=== PATIENT | female | born 1980 | race Caucasian/White ===

== ENCOUNTER 2019-09-30 15:36 | Emergency (ER) | payer OTHER, SELFPAY ==
--- NOTE | ~2019-09-30 | CT_ITS ---
EXAMINATION: CT abdomen pelvis wo con EXAM DATE: 09/30/2019 17:05 INDICATION: Left flank, left lower quadrant pain. TECHNIQUE: Spiral CT of the abdomen and pelvis was performed without contrast. Axial, coronal and sag ittal images were reviewed. The dose-length product (DLP) for this examination was 506.54 mGy-cm. T he exposure was tailored according to patient size (auto mA exposure control), and iterative reconstr uction (ASIR) was used as additional dose reduction technique. Comparison is made to prior examinatio n from 03/22/2019. FINDINGS: Bilateral nonobstructing calyceal stones, with a 3 mm stone in the superior pole of the lef t kidney and 2 right kidney stones, largest measuring 3.5 mm in the superior pole. No hydronephrosis. Lobular renal contours bilaterally. The uterus is retroverted and morphologically normal. Right ova ry has a dominant follicle. The bladder is unremarkable. The liver, spleen, adrenal glands and panc reas are unremarkable. There are cholecystectomy clips. There is no retroperitoneal or pelvic lymph adenopathy. The appendix is normal. Small duodenal diverticula. There is expected amount of colonic stool. Ther e is a few scattered colonic diverticula. There is no adjacent inflammatory change to suggest divert iculitis. No free intraperitoneal gas. The heart is normal in size. There are no pericardial or p leural effusions. The lung bases are unremarkable. The bones are unremarkable. IMPRESSION: 1. Small bilateral nephrolithiasis. No obstructive nephropathy or acute findings. 2. Scattered colonic, duodenal diverticula. Reviewed, dictated and finalized at location [facility]. IMPRESSION: 1. Small bilateral nephrolithiasis. No obstructive nephropathy or acute findin gs. 2. Scattered colonic, duodenal diverticula.
--- NOTE | ~2019-09-30 | XR_ITS ---
EXAMINATION: XR abdomen/kub 1V EXAM DATE: 09/30/2019 17:09 INDICATION: Left flank, left lower quadrant pain. TECHNIQUE: Frontal projection of the upper abdomen, frontal projection lower abdomen/pelvis for inter pretation. Comparison is made to prior examination from 03/22/2019. FINDINGS: Small bilateral nephrolithiasis is identified. Expected amount of colonic stool. Nonobstru ctive bowel gas pattern. There are cholecystectomy clips. There is no organomegaly. Small sacral bone island. IMPRESSION: Small bilateral nephrolithiasis. Reviewed, dictated and finalized at location [facility].
[2019-09-30 15:38] VITALS: BP 140/91; PULSE 85; RESP 18; TEMP 37.3; O2SAT 99
[2019-09-30 16:00] VITALS: BP 133/81; PULSE 84; RESP 18; O2SAT 96
[2019-09-30 16:07] LABS: Basophils Percent Auto 0.2 % (0.2-1.2); Eosinophils Absolute Auto 0.1 K/mm3 (0-0.3); Hematocrit 42.3 % (37.0-47.0); Hemoglobin 13.6 g/dL (12.0-15.0); Immature Granulocyte Absolute 0.03 K/mm3 (0.00-0.031); Immature Granulocyte Percent A 0.3 % (0-0.5); Lymphocytes Absolute Auto 1.43 K/mm3 (0.9-3.2); Lymphocytes Percent Auto 16.6 % (18.3-44.2); Mean Corpuscular HGB Conc 32.2 g/dl (32-36); Mean Corpuscular Hemoglobin 29.3 pg (26-34); Mean Corpuscular Volume 91.2 fl (80-100); Mean Platelet Volume 11.1 fl (7.4-10.4); Monocytes Absolute Auto 0.6 K/mm3 (0.1-0.6); Monocytes Percent Auto 7.4 % (2.6-8.5); Neutrophils Absolute Auto 6.4 K/mm3 (1.3-6.7); Neutrophils Percent Auto 74.5 % (45.5-73.1); Platelet Count Result 268 k/mm3 (150-375); Red Blood Count 4.64 M/mm3 (4.2-5.4); Red Cell Distribution Width 13.6 % (11.5-14.5); White Blood Count 8.6 K/mm3 (4.5-10.0)
--- NOTE | 2019-09-30 16:08 | ED.ABDPAIN ---
HPI - Abdominal Pain General Chief Complaint: Abdominal Pain Stated Complaint: L FLANK PAIN Time Seen by Provider: 09/30/19 15:41 Source: patient and family Mode of arrival: ambulatory Limitations: no limitations History of Present Illness HPI narrative: Patient is a 39-year-old female who presents with left lower quadrant abdominal pain that began this morning as a sharp stabbing pain worse with activity and movement that does not radiate patient denies similar occurrence in the past has not taken anything for her symptoms. Patient on arrival is in the room in no distress. Patient denies vomiting nausea change in bowel habits or urinary symptoms or any radicular symptoms or paresthesias Related Data Allergies Allergy/AdvReac Type Severity Reaction Status Date / Time morphine Allergy Severe diffculty Verified 09/30/19 15:47 breathing ketorolac Allergy Mild HIVES Verified 09/30/19 15:47 metoclopramide Allergy Mild HIVES Verified 09/30/19 15:47 tramadol Allergy Mild HIVES Verified 09/30/19 15:47 Review of Systems Review of Systems: All systems reviewed & are unremarkable except as noted in HPI and below PMFSH Past Medical History Medical History (Updated 09/30/19 @ 17:30 by Mayito Schneider PA-C) Urolithiasis Social History Social History Smoking status: Never smoker Gender identity (if verbalized by the patient): Female Exam Narrative: Exam Narrative: GENERAL: Well-appearing, obese, and in no acute distress. HEAD: Normocephalic, atraumatic. EYES: PERRLA and EOMI. ENT: Nares clear, no rhinorrhea or epistaxis. Mucous membranes moist. Oropharynx without tonsillar hypertrophy exudate or other lesions. CHEST: Clear to auscultation. No respiratory distress. No wheezes rales or rhonchi HEART: Regular rate and rhythm. No murmur heard. Normal peripheral pulses. ABDOMEN: Soft, focal left lower quadrant tenderness to palpation without rebound or guarding, nondistended EXTREMITIES: Normal range of motion. No edema. SKIN: Warm, dry, no rash. NEURO: No focal deficits. Alert and oriented x3. Cranial nerves II through XII grossly intact PSYCH: Normal mood and affect. Course Course Emergency Course: Patient in the room aware of case findings treatment plan and diagnosis felt appropriate for outpatient reevaluation Vital Signs Vital signs: Vital Signs Temperature 99.2 F 09/30/19 15:38 Pulse Rate 85 09/30/19 15:38 Respiratory Rate 18 09/30/19 15:38 Blood Pressure 140/91 H 09/30/19 15:38 Pulse Oximetry 99 09/30/19 15:38 Temperature 99.2 F 09/30/19 15:38 Pulse Rate 84 09/30/19 16:00 Respiratory Rate 18 09/30/19 16:00 Blood Pressure 133/81 09/30/19 16:00 Pulse Oximetry 96 09/30/19 16:00 MDM - Abdominal Pain MDM Narrative Medical decision making narrative: Patient in the room in no distress aware of case findings treatment plan diagnosis afebrile nontoxic-appearing no high risk changes in the blood work or imaging hydrated and given pain medicine in the emergency department provided with outpatient follow-up and instructed on reasons to return Differential Diagnosis Differential diagnosis: Likely abdominal pain, acute appendicitis, calculus of kidney, constipation, diverticulitis, endometriosis, gastroenteritis, pancreatitis and small bowel obstruction Lab Data Result diagrams: 09/30/19 15:57 09/30/19 15:57 Labs: Lab Results 09/30/19 09/30/19 09/30/19 Range/Units 15:57 15:57 15:57 WBC 8.6 (4.5-10.0) K/mm3 RBC 4.64 (4.2-5.4) M/mm3 Hgb 13.6 (12.0-15.0) g/dL Hct 42.3 (37.0-47.0) % MCV 91.2 (80-100) fl MCH 29.3 (26-34) pg MCHC 32.2 (32-36) g/dl RDW 13.6 (11.5-14.5) % Plt Count 268 (150-375) k/mm3 MPV 11.1 H (7.4-10.4) fl Immature Gran % (Auto) 0.3 (0-0.5) % Neut % (Auto) 74.5 H (45.5-73.1) % Lymph % (Auto) 16.6 L (18.3-44.2) % M
[2019-09-30] MEDS: FAMOTIDINE 20 MG/2 ML VIAL IV PUSH (16:16)
[2019-09-30 16:17] LABS: Add Urine Microscopic? YES; Appearance Urine Cloudy (Clear); Bacteria Urine Trace /hpf; Bilirubin Urine Negative (Negative); Blood Urine 1+ (Negative); Color Urine Yellow (Yellow); Glucose Urine UA Negative (Negative); Ketones Urine Negative (Negative); Leukocyte Esterase Ur 1+ LEU/UL (Negative); Mucus Urine Rare /lpf; Nitrate Urine Negative (Negative); Protein Urine Negative (Negative); RBC Urine 0-2 /hpf (0-2); Specific Grav Ur 1.021 (1.001-1.035); Squamous Epithelial Cell Urine Many /hpf (Few); Urobilinogen Urine Negative mg/dL (<2.0); WBC Urine 0-3 /hpf
[2019-09-30 16:19] LABS: Blood Urea Nitrogen 7 mg/dL (7-17); Calcium 8.8 mg/dL (8.4-10.2); Carbon Dioxide 27 mmol/L (22-30); Chloride 104 mmol/L (98-107); Estimated CRCL calculation 87 ml/min; Estimated Glomerular Filt Rate > 60; Glucose 97 mg/dL (65-105); Potassium 3.9 mmol/L (3.4-5.0); Sodium 137 mmol/L (137-145)
[2019-09-30] MEDS: SODIUM CHLORIDE 0.9% IV 1,000 ML 999 ML IV CONT (16:22)
[2019-09-30 16:30] LABS: Alanine Aminotransferase 46 U/L (4-35); Albumin Level 4.3 g/dL (3.5-5.1); Alkaline Phosphatase 78 U/L (38-126); Aspartate Amino Transferase 47 U/L (14-36); Bilirubin,Total 0.3 mg/dL (0.2-1.3); Lipase 98 U/L (23-300)
[2019-09-30] MEDS: IBUPROFEN IV 800 MG/200 ML 800 MG/200 ML BAG 400 MG IVPB (17:33)
[2019-09-30] MEDS: DIAZEPAM 5 MG TABLET PO (17:39)
[2019-09-30 17:42] VITALS: BP 131/82; PULSE 71; RESP 18; O2SAT 96
[2019-09-30 18:04] VITALS: BP 126/87; PULSE 72; RESP 17; O2SAT 96
== END 2019-09-30 18:05 | disposition home or self-care (01) ==
PROVIDERS: Emergency Medicine Emergency Medical Services; Emergency Provider Emergency Medicine
DX: R10.32 Left lower quadrant pain (principal); N20.0 Calculus of kidney; Z87.442 Personal history of urinary calculi
CPT/HCPCS: 36415; 74018; 74176; 80048; 80076; 81001; 81025; 83690; 85025; 96361; 96365; 96375; 99284; A9270; J0131; J1741; J7030

== ENCOUNTER 2020-10-10 14:12 | Emergency (ER) | payer OTHER, SELFPAY ==
--- NOTE | ~2020-10-10 | CT_ITS ---
EXAMINATION: CT abdomen pelvis wo con DATE: 10/10/2020 16:50 INDICATION: Right flank pain. History of kidney stones. TECHNIQUE: Computed tomography (CT) of the abdomen and pelvis was performed without intravenous contr ast. Automated exposure control and iterative reconstruction technique were employed. Exam dose: 511 .12 mGy-cm total exam DLP. COMPARISON: 09/30/[address] abdomen pelvis and KUB FINDINGS: The lung bases are clear. Normal heart size. No pericardial or pleural effusion. Status post cholecystectomy. No bile duct or pancreatic duct dilatation. Hepatic steatosis. No hepatic, splenic, pancreatic, and adrenal or renal space-occupying mass lesion is evident on this limited noncontrast examination. Approximately 5.5 mm nonobstructing mid to upper right renal calculus and 4 mm nonobstructing lower p ole right renal calculus. There are several pinpoint nonobstructing left renal calculi. No left or right ureteral calculus or hydroureteronephrosis. The urinary bladder is unremarkable. [place] and adnexal areas are unremarkable. Normal caliber of the abdominal aorta. No intraperitoneal or retroperitoneal or pelvic mass lesion or adenopathy or ascites. Mild colonic diverticulosis; no CT evidence of diverticulitis. Normal appendix. No bowel obstruction, bowel wall thickening, pneumatosis or intraperitoneal free air. Small fat-containing umbilical hernia. Included skeletal structures are unremarkable. IMPRESSION: Bilateral nonobstructive nephrolithiasis Hepatic steatosis Status post cholecystectomy Normal appendix Mild colonic diverticulosis; no CT evidence of diverticulitis Reviewed, dictated and finalized at [facility]. Reviewed, dictated and finalized at [facility].
--- NOTE | ~2020-10-10 | XR_ITS ---
XR abdomen/kub 1V DATE: 10/10/2020 16:50 INDICATION: Right flank pain. History kidney stones. TECHNIQUE: AP projection, 2 views COMPARISON: 10/10/[address] abdomen pelvis FINDINGS: There are a couple of calcifications overlying each kidney, larger on the right, consistent with bilateral nonobstructive nephrolithiasis. No calcifications are noted overlying the course of t he ureters within the urinary bladder. Status post cholecystectomy. The psoas shadows are intact. No visceromegaly is evident. No evidence of bowel obstruction. IMPRESSION: Bilateral nephrolithiasis Reviewed, dictated and finalized at [facility]. Reviewed, dictated and finalized at [facility]. IMPRESSION: Bilateral nephrolithiasis
[2020-10-10 14:16] VITALS: BP 137/93; PULSE 78; RESP 18; TEMP 36.7; O2SAT 98
[2020-10-10 14:32] LABS: Basophils Percent Auto 0.2 % (0.2-1.2); Eosinophils Absolute Auto 0.1 K/mm3 (0-0.3); Eosinophils Percent Auto 0.9 % (0-4.4); Hematocrit 43.6 % (37.0-47.0); Hemoglobin 14.1 g/dL (12.0-15.0); Immature Granulocyte Absolute 0.02 K/mm3 (0.00-0.031); Immature Granulocyte Percent A 0.2 % (0-0.5); Lymphocytes Absolute Auto 1.58 K/mm3 (0.9-3.2); Lymphocytes Percent Auto 19.7 % (18.3-44.2); Mean Corpuscular HGB Conc 32.3 g/dl (32-36); Mean Corpuscular Hemoglobin 30.4 pg (26-34); Mean Platelet Volume 10.7 fl (7.4-10.4); Monocytes Absolute Auto 0.6 K/mm3 (0.1-0.6); Monocytes Percent Auto 7.2 % (2.6-8.5); Neutrophils Absolute Auto 5.7 K/mm3 (1.3-6.7); Neutrophils Percent Auto 71.8 % (45.5-73.1); Platelet Count Result 276 k/mm3 (150-375); Red Blood Count 4.64 M/mm3 (4.2-5.4); Red Cell Distribution Width 12.5 % (11.5-14.5)
[2020-10-10 14:42] LABS: Anion Gap 10 mmol/L (8-16); Blood Urea Nitrogen 6 mg/dL (7-17); Calcium 9.3 mg/dL (8.4-10.2); Carbon Dioxide 25 mmol/L (22-30); Chloride 105 mmol/L (98-107); Estimated CRCL calculation 82 ml/min; Estimated Glomerular Filt Rate > 60; Glucose 97 mg/dL (65-105); Potassium 3.8 mmol/L (3.4-5.0); Sodium 140 mmol/L (137-145)
[2020-10-10 14:50] LABS: Add Urine Microscopic? YES; Appearance Urine Clear (Clear); Bilirubin Urine Negative (Negative); Blood Urine 1+ (Negative); Color Urine Yellow (Yellow); Glucose Urine UA Negative (Negative); Ketones Urine Negative (Negative); Leukocyte Esterase Ur Negative LEU/UL (Negative); Mucus Urine Rare /lpf; Nitrate Urine Negative (Negative); Protein Urine Negative (Negative); Specific Grav Ur 1.011 (1.001-1.035); Squamous Epithelial Cell Urine Many /hpf (Few); Urobilinogen Urine Negative mg/dL (<2.0); WBC Urine 0-3 /hpf
[2020-10-10 16:02] LABS: Alanine Aminotransferase 35 U/L (4-35); Albumin Level 4.6 g/dL (3.5-5.1); Alkaline Phosphatase 87 U/L (38-126); Aspartate Amino Transferase 56 U/L (14-36); Bilirubin,Total 0.6 mg/dL (0.2-1.3); Lipase 93 U/L (23-300)
[2020-10-10] MEDS: ONDANSETRON INJ 4 MG/2 ML VIAL IV PUSH (16:40)
--- NOTE | 2020-10-10 17:38 | ED.ABDPAIN ---
HPI - Abdominal Pain General Chief Complaint: Abdominal Pain Stated Complaint: right flank pain Time Seen by Provider: 10/10/20 14:50 Source: patient Mode of arrival: ambulatory Limitations: no limitations History of Present Illness HPI narrative: 40-year-old female Notes a 2 or 3-day history of right-sided flank and abdominal pain Some nausea Nothing is made it better or worse No vomiting, no diarrhea, no dysuria or hematuria, no vaginal discharge She had an ablation a year and a half ago and has no more periods Symptoms overall feels similar to what she has had when she has had kidney stones previously, the most recent of those was about 5 years ago and sounds like it was retrieved endoscopically Related Data Allergies Allergy/AdvReac Type Severity Reaction Status Date / Time morphine Allergy Severe diffculty Verified 10/10/20 14:18 breathing ketorolac Allergy Mild HIVES Verified 10/10/20 14:18 metoclopramide Allergy Mild HIVES Verified 10/10/20 14:18 tramadol Allergy Mild HIVES Verified 10/10/20 14:18 Review of Systems Review of Systems: All systems reviewed & are unremarkable except as noted in HPI and below Constitutional: Constitutional: Reports no additional constitutional complaints, Denies chills, Denies fever(s) and Denies headache(s) Eyes: Eyes: Reports no additional eye complaints and Denies change in vision ENT: Denies headache(s) and Denies sore throat Cardiovascular: Cardiovascular: Denies chest pain and Denies dyspnea Respiratory: Respiratory: Denies cough and Denies dyspnea Gastrointestinal: Gastrointestinal: Reports abdominal pain, Denies constipation, Denies diarrhea, Reports nausea and Denies vomiting Genitourinary: Genitourinary: Denies abnormal vaginal bleeding, Denies urinary frequency, Denies nocturia, Denies dysuria, Reports flank pain and Denies vaginal discharge Musculoskeletal: Musculoskeletal: Denies deformity, Denies arthralgias, Denies joint swelling and Denies numbness Integumentary/Breasts: Skin/Breast: Denies rash and Denies wounds Neurologic: Denies headache(s), Denies focal weakness and Denies numbness Psychiatric: Psychiatric: Reports no additional psychiatric complaints Endocrine: Endocrine: Reports no additional endocrine complaints Hematologic/Lymphatic: Hematologic/Lymphatic: Reports no additional hematologic/lymphatic complaints Allergic/Immunologic: Allergic/Immunologic: Reports no additional allergic/immunologic complaints PMFSH Past Medical History Medical History (Updated 10/10/20 @ 18:57 by Macho Canela MD) Urolithiasis Surgical History Surgical History History of orthopedic surgery Social History Social History Smoking status: Never smoker Gender identity (if verbalized by the patient): Female Exam Const: General: cooperative, no acute distress and alert Nutritional Appearance: obese Orientation/consciousness: patient oriented x3 (alert) HENMT: Head: normal to inspection, normocephalic and atraumatic Ears: external ears normal General nose exam: no epistaxis Eyes: Conjunctivae: conjunctivae normal EOM: EOMs intact bilaterally Neck: Neck: normal visual inspection, supple and no JVD Resp: Effort & Inspection: normal respiratory effort and not labored Auscultation: clear to auscultation bilaterally and other (BS =) Cardio: Rate: regular rate Rhythm: regular rhythm Heart sounds: no murmurs GI: Inspection: non-distended GI Palp: Yes Soft to palpation, No Tenderness to palpation present (GI) and No Rebound tenderness present : General: Yes CVA tenderness (Mild on the right side) Skin: General skin exam: normal color and no rashes or lesions noted Neuro: General: patient oriented x3 (alert) and moves all extremities Speech: normal speech Extrem: General: normal to inspection and no pedal edema Psych:
[2020-10-10] MEDS: CYCLOBENZAPRINE HCL 10 MG TABLET PO (18:48)
[2020-10-10 19:11] VITALS: BP 144/89; PULSE 76; RESP 18; O2SAT 100
== END 2020-10-10 19:07 | disposition home or self-care (01) ==
PROVIDERS: Emergency Medicine; Emergency Provider Emergency Medicine; PCP Internal Medicine
DX: R10.9 Unspecified abdominal pain (principal); N20.0 Calculus of kidney; Z87.442 Personal history of urinary calculi; K76.0 Fatty (change of) liver, not elsewhere classified; K57.90 Diverticulosis of intestine, part unspecified, without perforation or abscess without bleeding
CPT/HCPCS: 36415; 74018; 74176; 80048; 80076; 81001; 81025; 83690; 85025; 96365; 96375; 99284; A9270; J0131; J2405

== ENCOUNTER 2020-11-28 03:18 | Emergency (ER) | payer OTHER, SELFPAY ==
[2020-11-28] VITALS (16 sets, daily range): BP systolic 114–150; BP diastolic 76–97; PULSE 76–96; RESP 12–24; TEMP 36.3–37.1; O2SAT 94–100
--- NOTE | ~2020-11-28 | CT_ITS ---
EXAMINATION: CT abdomen pelvis wo con DATE: 11/28/2020 04:47 INDICATION: Right flank pain TECHNIQUE: Computed tomography (CT) of the abdomen and pelvis was performed without intravenous contr ast. The dose-length product was 558.63 mGy-cm. Automated exposure control and iterative reconstructi on technique were employed. COMPARISON: CT dated 10/10/2020. FINDINGS: Lung bases are unremarkable. Heart size normal. No significant pleural or pericardial effus ion. No significant vascular abnormality. No lymphadenopathy. There are nonobstructing bilateral renal stones. No hydronephrosis or ureteral stone is identified. B ladder is decompressed. Status post cholecystectomy. Fatty infiltration of the liver. The spleen, pancreas, adrenal glands ar e unremarkable. Nonobstructive bowel gas pattern. No free air or free fluid. No acute osseous abnorma lity. IMPRESSION: 1. Nonobstructing bilateral nephrolithiasis. Reviewed, dictated and finalized at location [facility].
[2020-11-28 03:53] LABS: Basophils Percent Auto 0.3 % (0.2-1.2); Eosinophils Absolute Auto 0.1 K/mm3 (0-0.3); Hematocrit 44.6 % (37.0-47.0); Hemoglobin 14.1 g/dL (12.0-15.0); Immature Granulocyte Absolute 0.04 K/mm3 (0.00-0.031); Immature Granulocyte Percent A 0.4 % (0-0.5); Lymphocytes Absolute Auto 2.55 K/mm3 (0.9-3.2); Lymphocytes Percent Auto 26.6 % (18.3-44.2); Mean Corpuscular HGB Conc 31.6 g/dl (32-36); Mean Corpuscular Hemoglobin 29.9 pg (26-34); Mean Corpuscular Volume 94.5 fl (80-100); Mean Platelet Volume 10.8 fl (7.4-10.4); Monocytes Absolute Auto 0.7 K/mm3 (0.1-0.6); Neutrophils Absolute Auto 6.2 K/mm3 (1.3-6.7); Neutrophils Percent Auto 64.7 % (45.5-73.1); Platelet Count Result 266 k/mm3 (150-375); Red Blood Count 4.72 M/mm3 (4.2-5.4); Red Cell Distribution Width 12.1 % (11.5-14.5); White Blood Count 9.6 K/mm3 (4.5-10.0)
[2020-11-28 04:07] LABS: Anion Gap 6 mmol/L (8-16); Blood Urea Nitrogen 9 mg/dL (7-17); Carbon Dioxide 27 mmol/L (22-30); Chloride 106 mmol/L (98-107); Estimated CRCL calculation 76 ml/min; Estimated Glomerular Filt Rate > 60; Glucose 95 mg/dL (65-110); Potassium 3.7 mmol/L (3.4-5.0); Sodium 139 mmol/L (137-145)
--- NOTE | 2020-11-28 04:19 | ED.ABDPAIN ---
HPI - Abdominal Pain General Chief Complaint: Abdominal Pain Stated Complaint: R Flank Pain,Nausea Time Seen by Provider: 11/28/20 04:01 History of Present Illness HPI narrative: 40 yo female w/ h/o fibromyalgia, kidney stones presents to the ED for right flank pain. She has had this pain since yesterday. Severe. Radiates to the RLQ. Associated with nausea. Similar to past kidney stone. On review of the chart she was seen here 6 weeks ago for the same complaint and no aute cause wass found. Related Data Home Medications Medication Instructions Recorded Confirmed No Home Medications 11/28/20 11/28/20 Allergies Allergy/AdvReac Type Severity Reaction Status Date / Time morphine Allergy Severe diffculty Verified 11/28/20 03:32 breathing ketorolac Allergy Mild HIVES Verified 11/28/20 03:32 metoclopramide Allergy Mild HIVES Verified 11/28/20 03:32 tramadol Allergy Mild HIVES Verified 11/28/20 03:32 Review of Systems Review of Systems: All systems reviewed & are unremarkable except as noted in HPI and below ENT: Reports system reviewed and no additional complaints, except as documented Cardiovascular: Cardiovascular: Denies chest pain Respiratory: Respiratory: Denies dyspnea Gastrointestinal: Gastrointestinal: Reports as per HPI Genitourinary: Genitourinary: Denies hematuria, Reports nocturia and Denies dysuria Neurologic: Reports system reviewed and no additional complaints, except as documented [facility] Past Medical History Medical History (Updated 11/28/20 @ 06:39 by Mike Messer MD) Fibromyalgia Urolithiasis Surgical History Surgical History History of orthopedic surgery Social History Social History Smoking status: Never smoker Gender identity (if verbalized by the patient): Female Exam Const: General: no acute distress and alert Nutritional Appearance: obese Orientation/consciousness: patient oriented x3 HENMT: Head: normal to inspection Resp: Effort & Inspection: normal respiratory effort Auscultation: clear to auscultation bilaterally Cardio: Rate: regular rate Rhythm: regular rhythm GI: Inspection: non-distended GI Palp: Yes Soft to palpation and No Tenderness to palpation present (GI) : General: Yes CVA tenderness bilateral Skin: General skin exam: normal color Neuro: General: patient oriented x3 and moves all extremities Extrem: General: normal to inspection Course Vital Signs Vital signs: Vital Signs Temperature 36.3 C L 11/28/20 03:25 Pulse Rate 92 11/28/20 03:25 Respiratory Rate 20 11/28/20 03:25 Blood Pressure 150/93 H 11/28/20 03:25 Pulse Oximetry 94 11/28/20 03:25 Temperature 37.1 C 11/28/20 03:28 Pulse Rate 77 11/28/20 05:32 Respiratory Rate 17 11/28/20 05:32 Blood Pressure 114/76 11/28/20 05:32 Pulse Oximetry 99 11/28/20 05:32 MDM - Abdominal Pain MDM Narrative Medical decision making narrative: Given that she has been here twice with the same complaint and no cause was found at the last visit I will hold off on narcotics until we can confirm a diagnosis that warrants CT and labs once again unremarkable. Medical Records Attestation: I reviewed the patient's medical records. Lab Data Attestation: I reviewed the patient's lab results. Result diagrams: 11/28/20 03:39 11/28/20 03:39 Labs: Lab Results 11/28/20 11/28/20 11/28/20 Range/Units 03:39 03:39 04:24 WBC 9.6 (4.5-10.0) K/mm3 RBC 4.72 (4.2-5.4) M/mm3 Hgb 14.1 (12.0-15.0) g/dL Hct 44.6 (37.0-47.0) % MCV 94.5 (80-100) fl MCH 29.9 (26-34) pg MCHC 31.6 L (32-36) g/dl RDW 12.1 (11.5-14.5) % Plt Count 266 (150-375) k/mm3 MPV 10.8 H (7.4-10.4) fl Immature Gran % (Auto) 0.4 (0-0.5) % Neut % (Auto) 64.7 (45.5-73.1) % Lymph % (Auto) 26.6 (18.
--- NOTE | 2020-11-28 04:36 | PC.NURSE ---
Patient being taken to CT.
[2020-11-28 04:40] LABS: Add Urine Microscopic? YES; Appearance Urine Clear (Clear); Bilirubin Urine Negative (Negative); Blood Urine 2+ (Negative); Color Urine Yellow (Yellow); Glucose Urine UA Negative (Negative); Ketones Urine Negative (Negative); Leukocyte Esterase Ur Negative LEU/UL (Negative); Mucus Urine Rare /lpf; Nitrate Urine Negative (Negative); Protein Urine Negative (Negative); Specific Grav Ur 1.023 (1.001-1.035); Squamous Epithelial Cell Urine Moderate /hpf (Few); Urobilinogen Urine Negative mg/dL (<2.0)
== END 2020-11-28 06:54 | disposition home or self-care (01) ==
PROVIDERS: Emergency Provider Emergency Medicine
DX: R10.9 Unspecified abdominal pain (principal)
CPT/HCPCS: 36415; 74176; 80048; 81001; 81025; 85025; 99284